=== PATIENT | female | born 1990 | race Asian ===

== ENCOUNTER 2019-10-05 17:20 | Emergency (ER) | payer OTHER ==
[~2019-10-05] VITALS: Ht 165.1 cm; Wt 70.3 kg
[2019-10-05 17:29] VITALS: BP 120/76; Ht 165.1 cm; Wt 70.3 kg
== END 2019-10-05 19:16 | disposition home or self-care (01) ==
LOC: ED 17:20
DX: M94.0 Chondrocostal junction syndrome [Tietze] (principal); R05 Cough
CPT/HCPCS: 87804